=== PATIENT | male | born 1955 | race Caucasian/White ===

== ENCOUNTER 2021-02-13 07:48 | Outpatient (CLI) | payer OTHER, SELFPAY ==
--- NOTE | 2021-02-13 10:28 | MR_ITS ---
WS: [id number] MRI LUMBAR SPINE NONCONTRAST HISTORY: RADICULAR Pain; lower BACK PAIN COMPARISON: 11/12/2018 TECHNIQUE: Sagittal and axial multisequence imaging is submitted. On the associate account executive survey there is multilevel disc, osteophyte and facet joint arthritis throughout the cer vical and thoracic spines. Component of cervical stenosis at multiple levels. Posterior alignment is normal with mild straightening. Mild chronic endplate changes at L5-S1. Disc spaces are narrowed and desiccated. Most significant at L5-S1. Conus terminates normally at L1. L1-L2: Mild annular disc bulging and facet arthritis. No stenosis. L2-L3: Mild annular disc bulging and osteophytic ridging. Asymmetric facet joint arthritis, greatest on the LEFT. There is mild LEFT subarticular recess narrowing similar to the prior study with encroac hment upon the traversing LEFT L3 nerve root. Mild LEFT foraminal narrowing. L3-L4: Mild annular disc bulging, osteophytic ridging and facet joint arthritis. No significant steno sis. L4-L5: Diffuse moderate annular disc bulging and mild osteophytic ridging. Encroachment into the suba rticular recesses bilaterally. Again noted is a small RIGHT foraminal disc protrusion contacting the RIGHT L4 nerve root. Moderate facet joint arthritis and ligamentum flavum hypertrophy. Mild to modera te bilateral subarticular recess and foraminal stenosis. L5-S1: Asymmetric disc bulging to the RIGHT. RIGHT subarticular recess and foraminal disc protrusion with annular fissure contacting the RIGHT lateral thecal sac. There is mild encroachment upon the RIG HT S1 nerve root and also the RIGHT L5 nerve root. RIGHT L5-S1 laminectomy defect. The previously camila cribed soft tissue centrally thought to be granulation tissue has significantly decreased. Moderate b ilateral foraminal stenosis, greatest on the RIGHT. Bilateral subarticular recess stenosis also more significant on the RIGHT. Tarlov cyst posterior to S2. MR/MR lumbar spine wo con* [id number] IMPRESSION: 1. Moderate bilateral subarticular recess and foraminal stenosis at L5-S1 due to disc disease, protrusions and facet arthritis. Most significant narrowing on the RIGHT due to disc protrusion. 2. RIGHT L5-S1 hemilaminectomy defect. 3. Decrease in amount of central granulation tissue at L5-S1. 4. Mild to moderate bilateral subarticular recess and foraminal stenosis at L4 -5. 5. Additional multilevel areas of stenoses in the cervical spine similar to th e prior study of 11/12/2018.
== END 2021-02-13 07:49 | disposition home or self-care (01) ==
LOC: RADSHAW 07:50
PROVIDERS: PCP Family Medicine; Visit Provider Family Medicine
DX: M54.16 Radiculopathy, lumbar region (principal); M48.061 Spinal stenosis, lumbar region without neurogenic claudication
CPT/HCPCS: 72148

== ENCOUNTER 2022-03-14 09:31 | Outpatient (CLI) | payer OTHER, SELFPAY ==
--- NOTE | 2022-03-14 09:49 | US_ITS ---
WS: [id number] ULTRASOUND SOFT TISSUES RIGHT neck. HISTORY: R NECK SWELLING/SWOLLEN LYMPH NODE VS MASS COMPARISON: None available. TECHNIQUE: 2-D and color Doppler imaging is submitted. Palpable area along the RIGHT cervical chain corresponds to a benign lymph node measuring 10 x 4 x 10 mm. Normal fatty hilum. US/US soft tissue head neck [id number] IMPRESSION: Normal RIGHT cervical chain lymph node.
== END 2022-03-14 09:32 | disposition home or self-care (01) ==
LOC: RAD 09:32
PROVIDERS: PCP Family Medicine; Visit Provider Nurse Practitioner
DX: R22.1 Localized swelling, mass and lump, neck (principal)
CPT/HCPCS: 76536

== ENCOUNTER 2022-04-22 06:00 | Outpatient (RCR) | payer OTHER, SELFPAY | END 2022-05-22 23:59 | disposition home or self-care (01) | LOC: SPT 06:00 | PROVIDERS: PCP Family Medicine; Visit Provider Family Medicine | DX: M54.50 Low back pain, unspecified (principal) | CPT/HCPCS: 97110; 97161 ==

== ENCOUNTER 2022-05-23 06:00 | Outpatient (RCR) | payer OTHER, SELFPAY | END 2022-06-19 23:59 | disposition home or self-care (01) | LOC: SPT 06:00 | PROVIDERS: PCP Family Medicine; Visit Provider Family Medicine | DX: M54.50 Low back pain, unspecified (principal) | CPT/HCPCS: 97110 ==

== ENCOUNTER 2022-06-20 06:00 | Outpatient (RCR) | payer OTHER, SELFPAY | END 2022-07-19 10:34 | disposition home or self-care (01) | LOC: SPT 06:00 | PROVIDERS: PCP Family Medicine; Visit Provider Family Medicine | DX: M54.50 Low back pain, unspecified (principal) | CPT/HCPCS: 97110 ==

== ENCOUNTER → 2024-06-16 08:21 | Outpatient (BNVA) | payer OTHER, SELFPAY | PROVIDERS: PCP Family Medicine; Visit Provider Nurse Practitioner Family | DX: L81.4 Other melanin hyperpigmentation (principal); D22.5 Melanocytic nevi of trunk; Z85.820 Personal history of malignant melanoma of skin; Z08 Encounter for follow-up examination after completed treatment for malignant neoplasm; Z85.828 Personal history of other malignant neoplasm of skin; D48.5 Neoplasm of uncertain behavior of skin; L57.0 Actinic keratosis | CPT/HCPCS: 11102; 17000; 99203 ==

== ENCOUNTER 2024-09-17 08:37 | Outpatient (CLI) | payer OTHER, SELFPAY ==
--- NOTE | 2024-09-17 08:41 | MR_ITS ---
WS: [id number] MRI LUMBAR SPINE NONCONTRAST TECHNIQUE: Sagittal T1, T2 and STIR imaging. Axial T1 and T2 imaging. CLINICAL INFORMATION: LUMBAR RADICULOPATHY COMPARISON: MRI 2020 FINDINGS: Mild lumbar curve. No acute compression. Incidental Tarlov cyst in the sacrum. Prior RIGHT L5-S1 hemilaminectomy. L1-L2: Mild annular bulging. Slight effacement of the ventral thecal sac with progressed narrowing of the subarticular recess. Moderate facet arthropathy. Foramen are patent. L2-L3: Mild disc bulging with mild central canal stenosis. Narrowing of the LEFT subarticular recess. Moderate facet arthropathy. Foramen are patent. L3-L4: Mild disc bulging with slight effacement of the ventral thecal sac. Moderate facet arthropathy. Foramen are patent. L4-L5: Slight anterolisthesis. Mild disc bulging with moderate central canal stenosis. Impingement traversing L5 nerve roots bilaterally in the subarticular recess. Moderate facet arthropathy. Small bilateral foraminal protrusions with moderate bilateral foraminal narrowing. Central canal stenosis has progressed. L5-S1: Slight retrolisthesis. RIGHT hemilaminectomy and partial discectomy. Associated granulation tissue with mild narrowing of the subarticular recess. Moderate RIGHT and mild LEFT foraminal narrowing. Moderate to advanced facet arthropathy. Visualized pelvic bony structures: Normal. Paravertebral soft tissues: Normal. Mild central canal stenosis in the mid cervical spine on the hat cone inspector imaging. MR/MR lumbar spine wo con* [id number] IMPRESSION: 1. Mild lumbar curve. No acute compression. Prior postoperative changes RIGHT L5-S1 hemilaminectomy and partial discectomy. 2. Moderate central canal stenosis L4-5 has progressed with impingement of tra versing L5 nerve roots bilaterally. 3. Slight impingement on the LEFT L2-3 subarticular recess with mild central c anal stenosis appears slightly progressed. 4. Mild central canal stenosis L1-2 appears progressed. 5. Moderate bilateral foraminal narrowing L4-5 with small bilateral foraminal protrusions. 6. Moderate RIGHT L5-S1 foraminal narrowing.
== END 2024-09-17 08:38 | disposition home or self-care (01) ==
PROVIDERS: PCP Family Medicine; Visit Provider Family Medicine
DX: M54.16 Radiculopathy, lumbar region (principal); M48.07 Spinal stenosis, lumbosacral region
CPT/HCPCS: 72148

== ENCOUNTER → 2024-12-14 13:08 | Outpatient (BNVA) | payer OTHER, SELFPAY | PROVIDERS: PCP Family Medicine; Visit Provider Nurse Practitioner Family | DX: L81.4 Other melanin hyperpigmentation (principal); D22.5 Melanocytic nevi of trunk; Z85.820 Personal history of malignant melanoma of skin; Z08 Encounter for follow-up examination after completed treatment for malignant neoplasm; Z85.828 Personal history of other malignant neoplasm of skin; Z09 Encounter for follow-up examination after completed treatment for conditions other than malignant neoplasm; Z87.2 Personal history of diseases of the skin and subcutaneous tissue; D48.5 Neoplasm of uncertain behavior of skin | CPT/HCPCS: 11102; 99213 ==